=== PATIENT | male | born 1970 | race Caucasian/White ===

== ENCOUNTER 2016-10-24 05:01 | Emergency (ER) | payer OTHER ==
--- NOTE | ~2016-10-24 | CR72 ---
[facility] A Service of [facility] & [facility] RADIOLOGY TEXT RESULTS PATIENT: HENOK DAVIS LOCATION: [facility] : 74 UNIT #: [id number] AGE: [address]: Dmitry Riddle MD SEX: M ORDER DR: [id number] [facility] [address] [place], [place] [address] [id number] MR#: [id number] Acc #: [id number] NAME: HENOK DAVIS : 1970 SEX: M STUDY DATE/TIME: 10/24/2016 6:16 UNIT: [facility] ROOM: STUDY DESCRIPTION: CR Chest Single View Portable Attending Physician: Dmitry Riddle M.D. Ordering Physician: Dmitry Riddle M.D. Primary Care Physician: Primary Care Physician No MEDICAL IMAGING REPORT This report is preliminary unless electronic signature is present EXAM Portable chest HISTORY Shortness of air cough, weakness, fever times 5 days. FINDINGS Portable view of the chest demonstrates parenchymal opacity in the right infrahilar region, could represent an early infiltrate or pneumonia. No effusions. Heart, mediastinum, great vessels and bony thorax unremarkable. Dictated by... Jairo Leon M.D. THIS IS AN ELECTRONICALLY VERIFIED REPORT Jairo Leon M.D. at 10/24/2016 3:55 PM Vitor TD: 10/24/2016 10:17 JOB #: [id number] MEDICAL IMAGING REPORT Page 1 of 1 COPY
[~2016-10-24 05:01] MED LIST: IBUPROFEN PO
[2016-10-24 06:21] LABS: INFLUENZA A NEG (NEG); INFLUENZA B NEG (NEG)
== END 2016-10-24 07:36 | disposition home or self-care (01) ==
LOC: CED 05:01
PROVIDERS: Emergency Medicine
DX: J18.1 Lobar pneumonia, unspecified organism (principal)
CPT/HCPCS: 71010; 87651; 87804; 94640; 99284

== ENCOUNTER → 2016-11-24 | Outpatient (CLI) | payer OTHER ==
--- NOTE | ~2016-11-24 | CR63 ---
[facility] A Service of [facility] & [facility] RADIOLOGY TEXT RESULTS PATIENT: HENOK DAVIS LOCATION: [facility] : 74 UNIT #: [id number] AGE: [address]: CAPRI ISAAC APRN SEX: M ORDER DR: [id number] [facility] [address] [place], [place] [address] [id number] MR#: [id number] Acc #: [id number] NAME: HENOK DAVIS : 1970 SEX: M STUDY DATE/TIME: 11/24/2016 19:33 UNIT: [facility] ROOM: STUDY DESCRIPTION: CR Chest 2 View Attending Physician: Capri Isaac Referring Physician: Capri Isaac Ordering Physician: Sherri Isaac Aprn Primary Care Physician: Primary Care Physician No MEDICAL IMAGING REPORT This report is preliminary unless electronic signature is present EXAM Chest PA and lateral, 11/24/2016 HISTORY Cough and right side chest pain for 1 month, pneumonia. FINDINGS PA and lateral examination of the chest upright shows a good expansion of the parenchyma with a normal distribution of the pulmonary vascularity. There is no indication of congestion, effusion, infiltrate, tumor, or nodular density. The pleural reflections and diaphragmatic contours are normal. The cardiac silhouette and mediastinal anatomy is within normal limits. IMPRESSION Normal chest. Dictated by... Sven Rincon M.D. THIS IS AN ELECTRONICALLY VERIFIED REPORT Sven Rincon M.D. at 11/25/2016 7:23 AM VALERIE/iam TD: 11/25/2016 04:33 JOB #: [id number] MEDICAL IMAGING REPORT Page 1 of 1 COPY
== END | disposition home or self-care (01) ==
LOC: CRAD 19:22
DX: R05 Cough (principal); Z87.01 Personal history of pneumonia (recurrent)
CPT/HCPCS: 71020